=== PATIENT | male | born 1955 | race Caucasian/White ===

== ENCOUNTER → 2020-05-27 16:11 | Outpatient (BNVA) | payer OTHER, SELFPAY | PROVIDERS: Family Provider Internal Medicine; PCP Internal Medicine; Visit Provider Nurse Practitioner Family | DX: Z20.828 Contact with and (suspected) exposure to other viral communicable diseases (principal) | CPT/HCPCS: 87635 ==

== ENCOUNTER → 2020-11-21 15:00 | Outpatient (BNVA) | payer OTHER, SELFPAY | PROVIDERS: Family Provider Internal Medicine; PCP Internal Medicine; Visit Provider Internal Medicine | DX: E03.9 Hypothyroidism, unspecified (principal) | CPT/HCPCS: 84443 ==

== ENCOUNTER → 2021-01-22 15:22 | Outpatient (BNVA) | payer OTHER, SELFPAY | PROVIDERS: Family Provider Internal Medicine; PCP Internal Medicine; Visit Provider Internal Medicine | DX: E08.9 Diabetes mellitus due to underlying condition without complications (principal); Z79.4 Long term (current) use of insulin; I10 Essential (primary) hypertension; E03.9 Hypothyroidism, unspecified | CPT/HCPCS: 83036 ==

== ENCOUNTER → 2021-07-23 09:49 | Outpatient (BNVA) | payer OTHER, SELFPAY | PROVIDERS: Family Provider Internal Medicine; PCP Internal Medicine; Visit Provider Internal Medicine | DX: E08.9 Diabetes mellitus due to underlying condition without complications (principal); Z79.4 Long term (current) use of insulin | CPT/HCPCS: 80053; 83036; 84443 ==

== ENCOUNTER → 2021-09-24 09:13 | Outpatient (BNVA) | payer OTHER, SELFPAY | PROVIDERS: Family Provider Internal Medicine; PCP Internal Medicine; Visit Provider Podiatrist Foot & Ankle Surgery | DX: M79.671 Pain in right foot (principal); M79.672 Pain in left foot; E08.9 Diabetes mellitus due to underlying condition without complications; Z79.4 Long term (current) use of insulin | CPT/HCPCS: 73630 ==

== ENCOUNTER → 2023-09-23 08:54 | Outpatient (BNVA) | payer MEDICARE, SELFPAY | PROVIDERS: Family Provider Internal Medicine; PCP Clinical Nurse Specialist Adult Health; Visit Provider Clinical Nurse Specialist Adult Health | DX: E11.9 Type 2 diabetes mellitus without complications (principal); E08.9 Diabetes mellitus due to underlying condition without complications; Z79.4 Long term (current) use of insulin; E03.9 Hypothyroidism, unspecified; Z79.899 Other long term (current) drug therapy | CPT/HCPCS: 80053; 80061; 83036; 84443; 85025 ==

== ENCOUNTER → 2023-12-22 09:06 | Outpatient (BNVA) | payer MEDICARE, SELFPAY | PROVIDERS: Family Provider Internal Medicine; PCP Clinical Nurse Specialist Adult Health; Visit Provider Clinical Nurse Specialist Adult Health | DX: E03.9 Hypothyroidism, unspecified (principal); E78.5 Hyperlipidemia, unspecified; E08.9 Diabetes mellitus due to underlying condition without complications; Z79.4 Long term (current) use of insulin; Z12.11 Encounter for screening for malignant neoplasm of colon; L82.1 Other seborrheic keratosis | CPT/HCPCS: 80061; 83036; 84443 ==

== ENCOUNTER → 2024-01-04 14:19 | Outpatient (BNVA) | payer MEDICARE, SELFPAY | PROVIDERS: Family Provider Internal Medicine; PCP Clinical Nurse Specialist Adult Health; Visit Provider Podiatrist Foot & Ankle Surgery | DX: L60.3 Nail dystrophy (principal); L84 Corns and callosities; E08.9 Diabetes mellitus due to underlying condition without complications; Z79.4 Long term (current) use of insulin | CPT/HCPCS: 99203 ==

== ENCOUNTER → 2024-01-07 10:25 | Outpatient (BNVA) | payer MEDICARE, SELFPAY | PROVIDERS: Family Provider Internal Medicine; PCP Clinical Nurse Specialist Adult Health; Referring Provider Clinical Nurse Specialist Adult Health; Visit Provider Surgery | DX: Z12.11 Encounter for screening for malignant neoplasm of colon (principal) | CPT/HCPCS: 99024; 99204 ==

== ENCOUNTER 2024-02-23 06:41 | Day surgery (SDC) | payer MEDICARE, SELFPAY ==
[2024-02-23 07:00] VITALS: BP 127/80; PULSE 84; RESP 16; TEMP 36.5; O2SAT 97; BMI 31.3
[2024-02-23] MEDS: sodium chloride 0.9% 1,000 ML 30 ML IV (07:07)
--- NOTE | 2024-02-23 07:40 | P.ANESASSM_ITS ---
Pre-Anesthetic Assessment Height/Weight: Height 1.7 m Weight 90.718 kg Temp Pulse Resp BP Pulse Ox O2 Del Method 97.7 F 84 16 127/80 97 Room Air 02/23/24 07:00 02/23/24 07:00 02/23/24 07:00 02/23/24 07:00 02/23/24 07:00 02/23/24 07:00 Operation Date: 02/23/24 07:45 Proposed Procedures p Colonoscopy 89630, G0105, Z12.11(Not Applicable) - Jose Manuel Champagne DO Familial anesthetic complications: None Was Beta Manisha taken within 24 hours: N/A Was Clonidine taken within 24 hours: N/A Last intake: Intake Last Liquid Date 02/22/24 Last Liquid Time 19:00 Last Solid Date 02/21/24 Last Solid Time 20:00 Social Tobacco (Chews, last used yesterday) and No alcohol Exam alert, oriented x 3, clear to auscultation bilaterally and regular rate & rhythm Airway Submandibular: within normal limits (Ramirez) Cervical ROM: within normal limits Mallampati: Class II Dentition: partials (Lower) History/ROS No significant history except as noted and No significant complaints Pulmonary None reported CV/HEM Hypertension None reported Hepatic None reported GI None reported Metabolic Diabetes Mellitus and Thyroid Disease [facility] [place] None reported Anesthetic Plan ASA status: 2 Anesthesia: Anesthesia Evaluation and MAC Risk of > 500 ml blood loss (7ml/kg in children): No Medications/Allergies Home Medications Medication Instructions Recorded Confirmed Last Taken Type blood-glucose meter #1 ea 09/23/23 02/23/24 02/21/24 Rx levothyroxine 175 mcg tablet 175 mcg PO DAILY #90 tabs 09/24/23 02/23/24 02/23/24 05:00 Rx alcohol swabs 1 pad topical DIRECTED #200 ea 10/19/23 02/23/24 02/21/24 Rx blood sugar diagnostic (Blood #200 ea 10/19/23 02/23/24 02/21/24 Rx Glucose Test strips) blood-glucose meter,continuous #1 ea 10/19/23 02/23/24 02/21/24 Rx (Dexcom G7 Nuclear Cardiology Technologist) blood-glucose sensor (Dexcom G7 #1 ea 10/19/23 02/23/24 02/21/24 Rx Sensor device) lancets #200 ea 10/19/23 02/23/24 02/21/24 Rx pen needle, diabetic 31 gauge x #100 ea 10/19/23 02/23/24 02/21/24 Rx 5/16 (Pen Needle) diabetic shoes w/ 3 inserts #1 ea 01/04/24 02/23/24 02/21/24 Rx insulin lispro 200 unit/mL (3 mL) See Rx Instructions .Route 01/14/24 02/23/24 02/21/24 Rx subcutaneous pen (Humalog KwikPen .COMPLEX #6 mL U-200 Insulin) insulin glargine 100 unit/mL (3 100 unit SUBCUT BEDTIME 02/22/24 02/23/24 02/22/24 History mL) subcutaneous pen (Lantus Solostar U-100 Insulin) Allergies Allergy/AdvReac Type Severity Reaction Status Date / Time No Known Allergies Allergy Verified 01/07/24 10:46 Current Medications Generic Name Dose Route Start Last Admin Trade Name Freq PRN Reason Stop Dose Admin Sodium Chloride 1,000 mls @ 30 mls/hr 02/23/24 07:00 02/23/24 07:07 Sodium Chloride 0.9% IV 02/24/24 06:59 30 mls/hr .Q24H RITA Administration PFSH Anesthesia Medical History Seborrheic keratosis Dyslipidemia Ventral incisional hernia External hemorrhoid Essential (primary) hypertension Acquired hypothyroidism Diabetes mellitus type 2. Onset after an episode of pancreatitis. on insulin regimen. Has Dexcom. Pancreatic insufficiency History of pancreatitis SURGERY FOR DRAINING OF THE PANCREAS Surgical History History of thyroid surgery THYROID RADIOACTIVE IODINE Hx of tonsillectomy History of appendectomy History of circumcision History of esophagogastroduodenoscopy (EGD) 2013 History of colonoscopy 2013 Family History Other Carotid artery disease Dementia Stroke Denies family history of Diabetes mellitus, type 2 Clotting disorder Anesthesia complication Bleeding disorder Family history of premature coronary artery disease Hypertension Social History Smoking and tobacco/nicotine status: never used tobacco/nicotine Alcohol intake: never Substance/Drug Use: never Household members: spouse Housing: House Marital status: Data Anesthesia Cardiac Studies: No Data to Display
[2024-02-23 07:48] LABS: Glucose Point of Care 113 mg/dL (70-110)
--- NOTE | 2024-02-23 07:50 | P.HP_ITS ---
Providers/Chief Complaint Primary Care Provider: Levar Palma Chief Complaint: Z12.11 History of Present Illness Lizbet Bowers is a 68 year old male Review of Systems General: Reports: 10 or more systems reviewed and unremarkable except in HPI and below Medications/Allergies Home Medications Medication Instructions Recorded Confirmed Last Taken Type blood-glucose meter #1 ea 09/23/23 02/23/24 02/21/24 Rx levothyroxine 175 mcg tablet 175 mcg PO DAILY #90 tabs 09/24/23 02/23/24 02/23/24 05:00 Rx alcohol swabs 1 pad topical DIRECTED #200 ea 10/19/23 02/23/24 02/21/24 Rx blood sugar diagnostic (Blood #200 ea 10/19/23 02/23/24 02/21/24 Rx Glucose Test strips) blood-glucose meter,continuous #1 ea 10/19/23 02/23/24 02/21/24 Rx (Dexcom G7 Research Associate) blood-glucose sensor (Dexcom G7 #1 ea 10/19/23 02/23/24 02/21/24 Rx Sensor device) lancets #200 ea 10/19/23 02/23/24 02/21/24 Rx pen needle, diabetic 31 gauge x #100 ea 10/19/23 02/23/24 02/21/24 Rx 5/16 (Pen Needle) diabetic shoes w/ 3 inserts #1 ea 01/04/24 02/23/24 02/21/24 Rx insulin lispro 200 unit/mL (3 mL) See Rx Instructions .Route 01/14/24 02/23/24 02/21/24 Rx subcutaneous pen (Humalog KwikPen .COMPLEX #6 mL U-200 Insulin) insulin glargine 100 unit/mL (3 100 unit SUBCUT BEDTIME 02/22/24 02/23/24 02/22/24 History mL) subcutaneous pen (Lantus Solostar U-100 Insulin) Allergies Allergy/AdvReac Type Severity Reaction Status Date / Time No Known Allergies Allergy Verified 01/07/24 10:46 PFSH Acute PFSH: Medical History Seborrheic keratosis Dyslipidemia Ventral incisional hernia External hemorrhoid Essential (primary) hypertension Acquired hypothyroidism Diabetes mellitus type 2. Onset after an episode of pancreatitis. on insulin regimen. Has Dexcom. Pancreatic insufficiency History of pancreatitis SURGERY FOR DRAINING OF THE PANCREAS Surgical History History of thyroid surgery THYROID RADIOACTIVE IODINE Hx of tonsillectomy History of appendectomy History of circumcision History of esophagogastroduodenoscopy (EGD) 2013 History of colonoscopy 2013 Family History Other Carotid artery disease Dementia Stroke Denies family history of Diabetes mellitus, type 2 Clotting disorder Anesthesia complication Bleeding disorder Family history of premature coronary artery disease Hypertension Social History Smoking and tobacco/nicotine status: never used tobacco/nicotine Alcohol intake: never Substance/Drug Use: never Household members: spouse Housing: House Marital status: Vitals/I&O/Wt Last Vital Signs Temp 97.7 F 02/23/24 07:00 Pulse 84 02/23/24 07:00 Resp 16 02/23/24 07:00 BP 127/80 02/23/24 07:00 Pulse Ox 97 02/23/24 07:00 O2 Del Method Room Air 02/23/24 07:00 Weight last 48 hrs Weight 200 lb A&P Assessment and plan (1) Screening for colon cancer: Plan Colonoscopy Attestations Medical Necessity Statement*: Home Coding Level of Care Code Acute Code for Chg Fwd Diagnoses Screening for colon cancer Z12.11
[2024-02-23 08:28] VITALS: BP 118/74; PULSE 77; RESP 14; TEMP 36.2; O2SAT 95
[2024-02-23 08:46] VITALS: BP 124/89; PULSE 70; RESP 16; O2SAT 96
--- NOTE | 2024-02-23 09:15 | ANE.PACU2 ---
Inpatient post-anesthesia follow up: Airway intact: Yes Vital signs: Temperature 97.1 F Pulse Rate 70 Respiratory Rate 16 Blood Pressure 124/89 Pulse Oximetry 96 Oxygen Delivery Me thod Room Air Oxygen Flow Rate Fraction of Inspir ed Oxygen Hydration adequate: Yes Nausea and vomiting: No Pain level: 1 Mental status: Baseline
== END 2024-02-23 09:15 | disposition home or self-care (01) ==
PROVIDERS: Family Provider Internal Medicine; PCP Clinical Nurse Specialist Adult Health; Visit Provider Surgery
PROC: 0DJD8ZZ Inspection of Lower Intestinal Tract, Via Natural or Artificial Opening Endoscopic (ICD-10-PCS; CPT 45378; principal; 2024-02-23 07:45)
DX: Z12.11 Encounter for screening for malignant neoplasm of colon (principal); D12.2 Benign neoplasm of ascending colon; D12.3 Benign neoplasm of transverse colon; I10 Essential (primary) hypertension; E03.9 Hypothyroidism, unspecified; E11.9 Type 2 diabetes mellitus without complications; Z79.4 Long term (current) use of insulin; F17.220 Nicotine dependence, chewing tobacco, uncomplicated; E78.5 Hyperlipidemia, unspecified; K64.8 Other hemorrhoids
CPT/HCPCS: 36416; 45385; 82962; 88305; J2704; J3490; J7030

== ENCOUNTER → 2024-06-23 08:38 | Outpatient (BNVA) | payer MEDICARE, SELFPAY | PROVIDERS: Family Provider Internal Medicine; PCP Clinical Nurse Specialist Adult Health; Visit Provider Clinical Nurse Specialist Adult Health | DX: E03.9 Hypothyroidism, unspecified (principal); E08.9 Diabetes mellitus due to underlying condition without complications; Z79.4 Long term (current) use of insulin | CPT/HCPCS: 80053; 80061; 83036; 84443; 85025 ==

== ENCOUNTER 2024-08-29 20:00 | Outpatient (CLI) | payer MEDICARE, SELFPAY | END 2024-08-29 20:01 | disposition home or self-care (01) | LOC: SLEEP 23:23 | PROVIDERS: Family Provider Internal Medicine; PCP Clinical Nurse Specialist Adult Health; Visit Provider Clinical Nurse Specialist Adult Health | DX: G47.33 Obstructive sleep apnea (adult) (pediatric) (principal); G47.36 Sleep related hypoventilation in conditions classified elsewhere | CPT/HCPCS: 95810 ==

== ENCOUNTER → 2024-12-18 10:22 | Outpatient (BNVA) | payer MEDICARE, SELFPAY | PROVIDERS: Family Provider Internal Medicine; PCP Clinical Nurse Specialist Adult Health; Visit Provider Clinical Nurse Specialist Adult Health | DX: E11.9 Type 2 diabetes mellitus without complications (principal); E08.9 Diabetes mellitus due to underlying condition without complications; Z79.4 Long term (current) use of insulin; E78.5 Hyperlipidemia, unspecified | CPT/HCPCS: 80053; 80061; 82607; 83036; 85025 ==

== ENCOUNTER → 2025-01-02 12:44 | Outpatient (BNVA) | payer MEDICARE, SELFPAY | PROVIDERS: Family Provider Internal Medicine; PCP Clinical Nurse Specialist Adult Health; Visit Provider Podiatrist Foot & Ankle Surgery | DX: E11.42 Type 2 diabetes mellitus with diabetic polyneuropathy (principal); L60.3 Nail dystrophy; L84 Corns and callosities; Z79.4 Long term (current) use of insulin; G62.9 Polyneuropathy, unspecified | CPT/HCPCS: 11721; 99214 ==

== ENCOUNTER → 2025-01-17 14:08 | Outpatient (BNVA) | payer MEDICARE, SELFPAY | PROVIDERS: Family Provider Internal Medicine; PCP Clinical Nurse Specialist Adult Health; Visit Provider Podiatrist Foot & Ankle Surgery | DX: L60.3 Nail dystrophy (principal); L84 Corns and callosities; E08.9 Diabetes mellitus due to underlying condition without complications; Z79.4 Long term (current) use of insulin; G62.9 Polyneuropathy, unspecified | CPT/HCPCS: 11730; 11750; J9999 ==

== ENCOUNTER → 2025-01-31 13:45 | Outpatient (BNVA) | payer MEDICARE, SELFPAY | PROVIDERS: Family Provider Internal Medicine; PCP Clinical Nurse Specialist Adult Health; Visit Provider Podiatrist Foot & Ankle Surgery | DX: E11.42 Type 2 diabetes mellitus with diabetic polyneuropathy (principal); L60.3 Nail dystrophy; L84 Corns and callosities; Z79.4 Long term (current) use of insulin; G62.9 Polyneuropathy, unspecified | CPT/HCPCS: 99213 ==

== ENCOUNTER → 2025-05-28 13:29 | Outpatient (BNVA) | payer MEDICARE, SELFPAY | PROVIDERS: Family Provider Internal Medicine; PCP Clinical Nurse Specialist Adult Health; Visit Provider Clinical Nurse Specialist Adult Health | DX: E03.9 Hypothyroidism, unspecified (principal); E08.9 Diabetes mellitus due to underlying condition without complications; Z79.4 Long term (current) use of insulin | CPT/HCPCS: 80053; 82607; 83036; 84443; 85025 ==

== ENCOUNTER → 2025-07-31 09:37 | Outpatient (BNVA) | payer MEDICARE, SELFPAY | PROVIDERS: Family Provider Internal Medicine; PCP Clinical Nurse Specialist Adult Health; Referring Provider Clinical Nurse Specialist Adult Health; Visit Provider Internal Medicine Endocrinology, Diabetes & Metabolism | DX: E11.65 Type 2 diabetes mellitus with hyperglycemia (principal); E11.42 Type 2 diabetes mellitus with diabetic polyneuropathy | CPT/HCPCS: 99204 ==